=== PATIENT | male | born 1950 | race Caucasian/White ===

== ENCOUNTER 2020-04-26 06:09 | Inpatient (IN) ==
[2020-04-26] MEDS ORDERED: cefOXitin 2,000 MG in Water for inj. (sterile) 20 ML IVP ONE (06:27)
[2020-04-26] MEDS ORDERED: Ringers Solution, Lactated 1,000 ML IVC SCH (06:30)
[2020-04-26] MEDS ORDERED: *HR* Propofol 200 MG/20 ML VIAL IVP ONE (06:59)
[2020-04-26] MEDS ORDERED: *HR* FentaNYL (PF) 100 MCG/2 ML VIAL ONE (06:59)
[2020-04-26] MEDS ORDERED: *HR* Succinylcholine 200 MG/10 ML VIAL IVP ONE (07:01)
[2020-04-26] MEDS ORDERED: Lidocaine -MPF 2% 2 ML VIAL ONE (07:01)
[2020-04-26] MEDS ORDERED: *HR* Rocuronium Bromide 50 MG/5 ML VIAL ONE ×2 (07:01→08:56)
[2020-04-26] MEDS ORDERED: Dexamethasone 4 MG/ML VIAL ONE (07:01)
[2020-04-26] MEDS ORDERED: Ondansetron 4 MG/2 ML VIAL ONE (07:01)
[2020-04-26] MEDS ORDERED: *HR* HYDROmorphone PF 0.5 MG/0.5 ML SYRINGE IVP PRN (07:26)
[2020-04-26] MEDS ORDERED: Ondansetron 4 MG/2 ML VIAL IVP PRN ×2 (07:26→12:10)
[2020-04-26] MEDS ORDERED: Promethazine 6.25 MG in Water for inj. (sterile) 20 ML IVPB PRN (07:26)
[2020-04-26] MEDS ORDERED: Lidocaine HCL 4 ML Topical Solution (Laryng-O-Jet Kit Sterile Pak) TP ONE (07:35)
[2020-04-26] MEDS ORDERED: Acetaminophen IV 1,000 MG/100 ML BAG ONE (08:01)
[2020-04-26] MEDS ORDERED: Famotidine 20 MG/2 ML VIAL ONE (08:01)
[2020-04-26] MEDS ORDERED: *HR* PHENYLEPHRINE 1,000 MCG/10 ML SYRINGE IVP ONE (08:37)
[2020-04-26] MEDS ORDERED: *HR* HYDROMORPHONE 2 MG/ML VIAL ONE (09:16)
[2020-04-26] MEDS ORDERED: Sugammadex Sodium 200 MG/2 ML VIAL IV ONE (11:13)
[2020-04-26] MEDS ORDERED: Naloxone 0.4 MG/ML INJ IVP PRN (12:10)
[2020-04-26] MEDS: 0.9 % Sodium Chloride 1,000 ML IVC SCH (12:21)
[2020-04-26] MEDS: Ketorolac 15 MG/ML VIAL IVP SCH ×3 (12:21→23:33)
[2020-04-26] MEDS: Acetaminophen IV 1,000 MG/100 ML BAG IVPB SCH ×3 (13:38→23:32)
[2020-04-26] MEDS: *HR* Heparin 5,000 UNIT/ML VIAL SQ SCH (17:39)
[2020-04-27 01:54] LABS: Hematocrit 33.5 % (37.5-50.1); Immature Granulocytes % 0.2 % (0-4); Lymphocytes # 0.5 K/mcL (0.6-4.6); Lymphocytes % 10.4 %; Mean Corpuscular HGB Conc 32.8 g/dL (31.6-35.5); Mean Corpuscular Hemoglobin 34.4 pg (28.0-33.3); Mean Corpuscular Volume 104.7 fL (83.0-100.0); Mean Platelet Volume 9.2 fL (9.4-12.4); Monocytes # 0.7 K/mcL (0.0-1.3); Monocytes % 14.6 %; Neutrophils # 3.7 K/mcL (1.6-8.9); Platelet Count 141 K/mcL (140-400); Red Cell Distribution Width 16.5 % (11.5-14.5); Segmented Neutrophils % 74.8 %
[2020-04-27 02:09] LABS: BUN/Creatinine Ratio 17 (6-26); Blood Urea Nitrogen 13 mg/dL (8-23); Calcium 8.6 mg/dL (8.6-10.3); Carbon Dioxide 27 mEq/L (23-29); Chloride 104 mEq/L (98-107); Glucose 120 mg/dL (70-105); Osmolality,Calculated 285 (280-300); Potassium 4.1 mEq/L (3.5-5.1); Sodium 137 mEq/L (136-145); eGFR For African Americans > 60 (> 60); eGFR For Non-African Americans > 60 (> 60)
[2020-04-27] MEDS: 0.9 % Sodium Chloride 1,000 ML IVC SCH ×2 (02:57→17:58)
[2020-04-27] MEDS: Acetaminophen IV 1,000 MG/100 ML BAG IVPB SCH ×4 (05:13→23:29)
[2020-04-27] MEDS: *HR* Heparin 5,000 UNIT/ML VIAL SQ SCH ×2 (05:13→18:02)
[2020-04-27] MEDS: Ketorolac 15 MG/ML VIAL IVP SCH ×4 (05:13→23:29)
[2020-04-28] MEDS: *HR* Heparin 5,000 UNIT/ML VIAL SQ SCH (05:16)
[2020-04-28] MEDS: Ketorolac 15 MG/ML VIAL IVP SCH ×2 (05:20→12:02)
[2020-04-28] MEDS: Acetaminophen IV 1,000 MG/100 ML BAG IVPB SCH ×2 (05:21→12:02)
[2020-04-28 06:58] VITALS: BP 124/68
[2020-04-28] MEDS ORDERED: Metoprolol XL (24 HR) Succ 50 MG TAB.ER.24H PO SCH (09:08)
[2020-04-28] MEDS ORDERED: hydroCHLOROthiazide 25 MG TABLET PO SCH (09:15)
== END 2020-04-28 13:20 | disposition home or self-care (01) | DRG 331 ==
LOC: SAMDAY 06:09 → 3ANU 12:09
PROVIDERS: ADMIT Surgery; ATTEND Surgery